=== PATIENT | male | born 1985 | race Two or more races ===

== ENCOUNTER 2019-09-17 15:35 | Emergency (ER) | payer MEDICAID ==
[~2019-09-17] VITALS: Ht 180.3 cm; Wt 95.3 kg
[2019-09-17 15:50] VITALS: BP 133/81
[2019-09-17 16:28] LABS: Basophils # (auto) 0 uL; Basophils % (auto) 0.3 % (0.0-2.0); Eosinophils # (auto) 0 uL; Eosinophils % (auto) 0.1 % (0.0-7.0); Hematocrit 45.1 % (41.0-53.0); Hemoglobin 15.4 g/dL (13.5-17.5); Lymphocytes # (auto) 1.7 uL; Lymphocytes % (auto) 13.3 % (10.0-50.0); Mean Corpuscular Hemoglobin 30.5 pg (28.0-32.0); Mean Corpuscular Hgb Conc. 34.1 g/dL (32.0-36.0); Mean Corpuscular Volume 89.5 fL (80.0-100.0); Monocytes # (auto) 0.8 uL; Monocytes % (auto) 6.2 % (0.0-12.0); Neutrophils # (auto) 10.3 uL; Neutrophils % (auto) 80.1 % (37.0-80.0); Platelet Count (auto) 241 10^3/uL (140-450); Red Blood Cells 5.04 10^6/uL (4.5-5.90); White Blood Cell 12.8 10^3/uL (4.4-10.8)
[2019-09-17 16:37] LABS: Albumin 3.8 g/dL (3.4-5.0); Calcium 8.8 mg/dL (8.5-10.1); Potassium 3.7 mmol/L (3.5-5.1)
[2019-09-17 16:40] LABS: BUN/Creatinine Ratio 14.1; Bilirubin, Total 0.8 mg/dL (0.2-1.0); Total Protein 8.1 g/dL (6.4-8.2)
== END 2019-09-17 20:50 | disposition left against medical advice (07) ==
LOC: ER 15:35
DX: L03.115 Cellulitis of right lower limb (principal); M79.604 Pain in right leg
CPT/HCPCS: 36415; 80053; 83605; 85025; 87040; 93971